=== PATIENT | female | born 1955 | race Caucasian/White ===

== ENCOUNTER → 2021-02-02 | Outpatient (CLI) | payer OTHER ==
[~2021-02-02] MED LIST: ATACAND HCT 321 EACH PO; BUDESONIDE ER9 MG PO; CARVEDILOL; DOCUSATE SODIU100 MG PO; JANUVIA100 MG PO; LEXAPRO20 MG PO; MOBIC15 MG PO; NEXIUM40 MG PO; PRAVASTATIN SOD40 MG PO; ROXICODONE TAB 55 MG PO; VITAMIN D PO
[2021-02-02 12:46] LABS: HEMOGLOBIN 12.3 gm/dl (12.3-15.3); RED BLOOD COUNT 4.3 M/UL (4.00-5.10); WHITE BLOOD COUNT 7.4 K/UL (4.5-11.0)
[2021-02-02 13:30] LABS: BUN/CREATININE RATIO 27 (0-10)
== END ==
LOC: OPSV2 11:30
PROVIDERS: Obstetrics & Gynecology
DX: Z01.818 Encounter for other preprocedural examination (principal); N93.9 Abnormal uterine and vaginal bleeding, unspecified
CPT/HCPCS: 80053; 81001; 85025; 93005

== ENCOUNTER → 2021-02-15 | Day surgery (SDC) | payer OTHER | END | disposition home or self-care (01) | LOC: OR 05:28 | DX: N84.0 Polyp of corpus uteri (principal); N95.0 Postmenopausal bleeding; E78.5 Hyperlipidemia, unspecified; E03.9 Hypothyroidism, unspecified; I10 Essential (primary) hypertension; K21.9 Gastro-esophageal reflux disease without esophagitis; Z98.51 Tubal ligation status; R93.89 Abnormal findings on diagnostic imaging of other specified body structures; E66.01 Morbid (severe) obesity due to excess calories; Z68.41 Body mass index [BMI] 40.0-44.9, adult; Z20.822 Contact with and (suspected) exposure to COVID-19; I44.4 Left anterior fascicular block; F17.210 Nicotine dependence, cigarettes, uncomplicated; K76.0 Fatty (change of) liver, not elsewhere classified; F32.A Depression, unspecified; E11.9 Type 2 diabetes mellitus without complications; Z91.018 Allergy to other foods | CPT/HCPCS: 71045; 82962; J1100; J1885; J2001; J2250; J2405; J2704; J2795; J3010; J7030; J7120; U0002 ==